=== PATIENT | female | born 1995 | race Caucasian/White ===

== ENCOUNTER 2020-01-06 20:46 | Emergency (ER) | payer SELFPAY ==
[~2020-01-06] VITALS: Ht 162.6 cm; Wt 75.0 kg
[2020-01-06 20:56] VITALS: TEMP 98.6
[2020-01-06 21:22] LABS: COLLECTION METHOD CLEAN CATCH
[2020-01-06 21:30] LABS: MUCOUS Present /lpf; PH 7 (5-8); SQUAMOUS EPITHELIAL 0-2 /hpf; URINE APPEARANCE Clear; URINE BACTERIA None Seen /hpf; URINE BILIRUBIN Negative (NEGATIVE); URINE BLOOD Negative (NEGATIVE); URINE COLOR Yellow; URINE GLUCOSE Negative (NEGATIVE); URINE KETONE Negative (NEGATIVE); URINE LEUKOCYTE ESTERASE Negative (NEGATIVE); URINE NITRATE Negative (NEGATIVE); URINE PROTEIN(semi-quant) Negative (NEGATIVE); URINE RBC 0-2 /hpf; URINE UROBILINOGEN Negative (NEGATIVE)
[2020-01-06 22:31] VITALS: BP 116/86; PULSE 72
== END 2020-01-06 22:31 | disposition home or self-care (01) ==
LOC: COL.ER 20:46
PROVIDERS: Physician Assistant
DX: R45.851 Suicidal ideations (principal)

== ENCOUNTER 2020-07-14 23:38 | Emergency (ER) | payer SELFPAY ==
[~2020-07-14] VITALS: Ht 162.6 cm; Wt 71.8 kg
[2020-07-14 23:46] VITALS: BP 115/74; TEMP 98.4
[2020-07-15 00:19] LABS: COLLECTION METHOD CLEAN CATCH
[2020-07-15 00:36] LABS: MUCOUS Present /lpf; PH 8 (5-8); URINE APPEARANCE Hazy; URINE BACTERIA None Seen /hpf; URINE BILIRUBIN Negative (NEGATIVE); URINE BLOOD Negative (NEGATIVE); URINE COLOR Yellow; URINE GLUCOSE Negative (NEGATIVE); URINE KETONE Negative (NEGATIVE); URINE LEUKOCYTE ESTERASE Negative (NEGATIVE); URINE NITRATE Negative (NEGATIVE); URINE PROTEIN(semi-quant) Negative (NEGATIVE); URINE RBC 0-2 /hpf; URINE UROBILINOGEN Negative (NEGATIVE)
[2020-07-15] MEDS ORDERED: FLAGYL500 MG PO (01:54)
[2020-07-15 01:59] VITALS: PULSE 88
[2020-07-15 16:36] LABS: HIV 1 and 2 ANTIBODY SCRN-SO Negative (Negative)
== END 2020-07-15 01:59 | disposition home or self-care (01) ==
LOC: COL.ER 23:38
PROVIDERS: Nurse Practitioner Primary Care
DX: N76.0 Acute vaginitis (principal); F17.210 Nicotine dependence, cigarettes, uncomplicated; Z32.02 Encounter for pregnancy test, result negative